=== PATIENT | female | born 1965 | race Caucasian/White ===

== ENCOUNTER 2016-11-29 22:19 | Emergency (ER) | payer OTHER ==
[~2016-11-29] VITALS: Ht 152.4 cm; Wt 90.7 kg
[~2016-11-29 22:19] MED LIST: ALBU0.0912 INH; AZIT250T3 PO; BECL0.089 INH; FERR-193 PO; FERR325E14 PO; FOLI1TAB19 PO; HYDR-4446 PO; LORA-476 PO; OMEP40EC14 PO; PARO20TA13 PO; QUET300T1 PO
[2016-11-29 22:52] VITALS: BP 130/80
--- NOTE | 2016-11-29 23:37 | NUR ---
TO ER BED 5
--- NOTE | 2016-11-29 23:41 | NUR ---
PATIENT PRESENTS TO ED WITH C/O LEFT SIDE PAIN . PT DENIES N/V/D; SKIN IS PINK/WARM/DRY; AAOX4 WITH EVEN AND STEADY GAIT; LUNGS CLEAR BL; HR EVEN AND REGULAR; PT DENIES ANY FEVER, CP, SOB, OR COUGH AT THIS TIME; PATIENT STATES PAIN OF 10/10 AT THIS TIME; VSS; PATIENT POSITIONED FOR COMFORT; HOB ELEVATED; BEDRAILS UP X2; BED DOWN. ER MD MADE AWARE OF PT STATUS.
--- NOTE | 2016-11-30 00:07 | NUR ---
EPatient being evaluated by physician at bedside.
[2016-11-30] MEDS ORDERED: fentaNYL 0.05 MG/ML VIAL IM ONE (00:15)
[2016-11-30 00:54] VITALS: BP 130/80
== END 2016-11-30 00:54 | disposition home or self-care (01) ==
LOC: MED 22:22
DX: S29.011A Strain of muscle and tendon of front wall of thorax, initial encounter (principal); S29.012A Strain of muscle and tendon of back wall of thorax, initial encounter; J45.909 Unspecified asthma, uncomplicated; J21.9 Acute bronchiolitis, unspecified; I10 Essential (primary) hypertension; Z88.8 Allergy status to other drugs, medicaments and biological substances; X58.XXXA Exposure to other specified factors, initial encounter; Y93.89 Activity, other specified; Y92.89 Other specified places as the place of occurrence of the external cause; Y99.8 Other external cause status
CPT/HCPCS: 96372; 99283; J3010

== ENCOUNTER 2017-01-13 09:48 | Inpatient (IN) | payer OTHER ==
[~2017-01-13] VITALS: Ht 152.4 cm; Wt 92.5 kg
[2017-01-13 09:53] VITALS: BP 145/86
--- NOTE | 2017-01-13 12:58 | NUR ---
Patient ambulated to bed 8. RN evaluating patient at bedside.
--- NOTE | 2017-01-13 12:58 | NUR ---
Rosanne lloyd in ED - 01/13/17 at 1555 by [email or web address] PATIENT IS CALLED FROM LOBBY NO ANSWER PATIENT IS LWBS.
--- NOTE | 2017-01-13 12:59 | NUR ---
51/F BIB FRIEND C/O SOB X3DAYS, DIZZINESS/LIGHTHEADED WHEN "GETTING UP" WITH FATIGUE. DENIES FEVER/N/V/D. HX CHRONIC ANEMIA, ASTHMA.PT STATED FEEL NAUSEA BUT DENIES V/D; SKIN IS PINK/WARM/DRY; AAOX4 WITH EVEN AND STEADY GAIT; LUNGS CONGESTED BL; PATIENT STATES PAIN OF 0/10 AT THIS TIME; VSS; PATIENT POSITIONED FOR COMFORT; HOB ELEVATED; BEDRAILS UP X2; BED DOWN. ER MD MADE AWARE OF PT STATUS.
[2017-01-13] MEDS ORDERED: ALBUTEROL SULFATE/IPRATROPIU 3 ML SOL IH ONE (13:05)
[2017-01-13 13:40] LABS: BASOPHILS # (AUTO) 0.1 K/uL (0.00-0.22); BASOPHILS % (AUTO) 0.8 % (0.0-2.0); EOSINOPHILS # (AUTO) 0.6 K/uL (0-0.4); EOSINOPHILS % (AUTO) 5.6 % (0.0-4.0); HEMATOCRIT 25.9 % (36-48); HEMOGLOBIN 7.9 g/dL (12.0-16.0); LYMPHOCYTES # (AUTO) 2.2 K/uL (2.5-16.5); LYMPHOCYTES % (AUTO) 20.9 % (20.5-51.1); MEAN CORPUSCULAR HEMOGLOBIN 24 pg (27-31); MEAN CORPUSCULAR HGB CONC 31 g/dL (33-37); MEAN CORPUSCULAR VOLUME 79 fL (80-94); MONOCYTES # (AUTO) 0.7 K/uL (0.8-1.0); MONOCYTES % (AUTO) 6.6 % (1.7-9.3); NEUTROPHILS # (AUTO) 6.8 K/uL (1.8-7.7); NEUTROPHILS % (AUTO) 66.1 % (42.2-75.2); PLATELET COUNT (AUTO) 359 K/uL (140-450); RED BLOOD CELL COUNT(AUTO) 3.27 MIL/uL (4.20-5.40); RED CELL DISTRIBUTION WIDTH 17.4 % (11.6-13.7); WHITE BLOOD COUNT (AUTO) 10.4 K/uL (4.8-10.8)
[2017-01-13 13:48] LABS: CALCIUM 8.3 mg/dL (8.5-10.1); CARBON DIOXIDE 27.4 mmol/L (21-32); CREATININE 0.7 mg/dL (0.6-1.3); POTASSIUM 4.4 mmol/L (3.5-5.1)
[2017-01-13 13:53] LABS: INR 1.1 (0.8-1.2); PARTIAL THROMBOPLASTIN TIME 25.2 secs (22-35.6); PROTHROMBIN TIME 10.4 secs (10.8-13.4)
[2017-01-13 13:54] LABS: ALBUMIN 3.5 g/dL (3.4-5.0); TOTAL BILIRUBIN 0.1 mg/dL (0.0-1.0); TOTAL PROTEIN, SERUM 6.8 g/dL (6.4-8.2)
--- NOTE | 2017-01-13 15:26 | NUR ---
GAVE BLOOD TRANSFUSION UNIT 1 RBC 400 ML RATE 100ML/HR L FOREARM.Patient appears to be resting comfortably in bed. Vital Signs within normal limits. Respirations even and unlabored. WILL CONTINUE TO MONITOR. NO S/S ALLERGIC REACTION FROM BL TRANSFUSION.
[2017-01-13] MEDS ORDERED: HYDROcodone/APAP 5/325 MG 1 TAB TAB PO ONE (15:35)
[2017-01-13] MEDS: NACL 0.9% 1,000 ML IV SCH (15:54)
[2017-01-13] MEDS ORDERED: ALBUTEROL 0.083% 2.5 MG/3 ML NEBU IH PRN (15:55)
[2017-01-13] MEDS ORDERED: ACETAMINOPHEN 325 MG TAB PO PRN (15:55)
[2017-01-13] MEDS ORDERED: MORPHINE SULFATE 2 MG/ML SYR IVP PRN (15:55)
[2017-01-13] MEDS ORDERED: ONDANSETRON 4 MG/2 ML VIAL IVP PRN (15:55)
[2017-01-13] MEDS ORDERED: HYDROcodone/APAP 5/325 MG 1 TAB TAB PO PRN ×2 (15:55)
--- NOTE | 2017-01-13 16:56 | NUR ---
FINISHED RBC 1 PACK 400ML. NO REACTION FROM BLOOD TRANSFUSION.
--- NOTE | 2017-01-13 17:00 | NUR ---
Patient will be admitted to care of DR LOTT. Admited to TELE. Will go to [facility]. Belongings list completed. Report to KECIA MCKINLEY.
[2017-01-13 17:15] VITALS: BP 97/64
--- NOTE | 2017-01-13 17:15 | NUR ---
RECEIVED PT ON THE FLOOR VIA GURNEY, PT IS A/OX4, AMBULATES WITH ASSIST, PT HAS IV ON THE LT AC, PATENT, INTACT, AND IV ON THE RT, FA, PATENT, INTACT, FLUSHING WELL, SKIN IS INTACT, PT IS ON O2 2L NC, NO S/S OF RESPIRATORY DISTRESS OR DISCOMFORT NOTED, SAFETY/FALL PRECAUTIONS ARE IN PLACE, ORIENTED PT TO THE ROOM, DISCUSSED PLAN OF CARE WITH PT, PT VERBALIZED UNDERSTANDING, CALL LIGHT IS WITHIN REACH, WILL CONTINUE TO MONITOR.
--- NOTE | 2017-01-13 18:44 | NUR ---
THE SECOND UNIT OF BLOOD WAS HUNG, PT TOLERATED WELL, NO S/S OF RESPIRATORY DISTRESS OR DISCOMFORT NOTED, CALL LIGHT WITHIN REACH, WILL CONTINUE TO MONITOR.
--- NOTE | 2017-01-13 19:15 | NUR ---
PT ENDORSED TO KECIA FLORES, FOR CONTINUITY OF CARE, PT STABLE AT THIS TIME.
--- NOTE | 2017-01-13 19:16 | NUR ---
RECEIVED REPORT FROM DAY RN FOR CONTINUITY OF CARE. PATIENT IS A&OX3, DISCUSSED PLAN OF CARE WITH PATIENT, VERBALIZED UNDERSTANDING. SHIFT ASSESSMENT DONE, VS TAKEN, STABLE. NO S/S OF RESPIRATORY DISTRESS NOTED ON 2L NC. PATIENT STATES PAIN, WILL MEDICATE PER MD ORDER. IV TO RT FA PATENT AND INFUSING BLOOD PRODUCT. IV TO LT AC FLUSHED AND PATENT. SAFETY PRECAUTIONS ENFORCED. CALL LIGHT WITHIN REACH. WILL CONTINUE TO MONITOR.
[2017-01-13 20:00] VITALS: BP 93/55
[2017-01-13] MEDS ORDERED: QUEtiapine FUMARATE 100 MG TAB PO SCH (21:00)
[2017-01-13] MEDS ORDERED: OMEPRAZOLE 40 MG PO SCH (21:00)
[2017-01-13] MEDS: PANTOPRAZOLE 40 MG TABEC PO SCH (21:03)
[2017-01-13] MEDS: FERROUS SULFATE 325 MG TABEC PO SCH (21:03)
[2017-01-13] MEDS: PARoxetine 20 MG TAB PO SCH (21:03)
--- NOTE | 2017-01-13 21:03 | NUR ---
DUE MEDICATIONS ADMINISTERED, TOLERATED WELL. WILL CONTINUE TO MONITOR.
[2017-01-13] MEDS: LORazepam 2 MG/ML VIAL IVP PRN (21:16)
--- NOTE | 2017-01-13 21:16 | NUR ---
PT C/O ANXIETY ATTACK, VS TAKEN, ELEVATED HR NOTED, ADMINISTERED MEDICATION PER MD ORDER. WILL CONTINUE TO MONITOR.
[2017-01-14] VITALS: BP 92/52
--- NOTE | 2017-01-14 00:18 | NUR ---
PATIENT VOMITED X1, CLEANED AND CHANGED PATIENT, MEDICATED WITH ZOFRAN. VS TAKEN. WILL CONTINUE TO MONITOR.
--- NOTE | 2017-01-14 02:05 | NUR ---
PT GOT OUT OF BED QUICKLY AND IV TO RT FA DISLODGED, CANNULA INTACT. ASSISTED TO RESTROOM, VOIDED. RETURNED TO BED. WILL CONTINUE TO MONITOR.
[2017-01-14] MEDS: NACL 0.9% 1,000 ML IV SCH ×3 (02:25→21:54)
[2017-01-14 04:00] VITALS: BP 109/72
--- NOTE | 2017-01-14 04:03 | NUR ---
PATIENT RESTING IN BED. IV FLUIDS MOVED TO LT IV. WILL CONTINUE TO MONITOR.
--- NOTE | 2017-01-14 06:00 | NUR ---
PATIENT RESTING IN BED. 98% O2 SAT ON 2L NC, HR 113. CALL LIGHT WITHIN REACH.
--- NOTE | 2017-01-14 07:20 | NUR ---
ENDORSED PATIENT TO DAY RN FOR CONTINUITY OF CARE, PATIENT IS IN STABLE CONDITION.
[2017-01-14 07:27] LABS: BASOPHILS % (AUTO) 0.3 % (0.0-2.0); EOSINOPHILS # (AUTO) 0.1 K/uL (0-0.4); HEMATOCRIT 25.2 % (36-48); LYMPHOCYTES # (AUTO) 1.4 K/uL (2.5-16.5); LYMPHOCYTES % (AUTO) 10.9 % (20.5-51.1); MEAN CORPUSCULAR HEMOGLOBIN 26 pg (27-31); MEAN CORPUSCULAR HGB CONC 32 g/dL (33-37); MEAN CORPUSCULAR VOLUME 83 fL (80-94); MONOCYTES # (AUTO) 0.7 K/uL (0.8-1.0); MONOCYTES % (AUTO) 5.5 % (1.7-9.3); NEUTROPHILS # (AUTO) 11.1 K/uL (1.8-7.7); NEUTROPHILS % (AUTO) 82.3 % (42.2-75.2); PLATELET COUNT (AUTO) 245 K/uL (140-450); RED BLOOD CELL COUNT(AUTO) 3.05 MIL/uL (4.20-5.40); RED CELL DISTRIBUTION WIDTH 16.6 % (11.6-13.7); WHITE BLOOD COUNT (AUTO) 13.3 K/uL (4.8-10.8)
[2017-01-14 07:37] LABS: ALBUMIN 2.7 g/dL (3.4-5.0); ANION GAP 11.1 (8-16); CALCIUM 7.5 mg/dL (8.5-10.1); CARBON DIOXIDE 24.6 mmol/L (21-32); CREATININE 0.5 mg/dL (0.6-1.3); POTASSIUM 4.7 mmol/L (3.5-5.1); TOTAL BILIRUBIN 0.1 mg/dL (0.0-1.0); TOTAL PROTEIN, SERUM 5.6 g/dL (6.4-8.2)
[2017-01-14 08:00] VITALS: BP 145/96
[2017-01-14] MEDS: PANTOPRAZOLE 40 MG TABEC PO SCH ×2 (08:45→20:58)
[2017-01-14] MEDS: FERROUS SULFATE 325 MG TABEC PO SCH (08:45)
[2017-01-14] MEDS: FOLIC ACID 1 MG TAB PO SCH (08:45)
[2017-01-14] MEDS: PARoxetine 20 MG TAB PO SCH ×2 (08:45→20:58)
[2017-01-14] MEDS ORDERED: NON-FORMULARY ITEM (Beclomethasone Dipropionate Mdi* (Qvar Hfa Mdi*) 80 MCG) INH SCH (09:00)
--- NOTE | 2017-01-14 09:09 | NUR ---
PATIENT HAS BEEN SCREENED AND CATEGORIZED MODERATE NUTRITION RISK. PATIENT WILL BE SEEN WITHIN 3-5 DAYS OF ADMISSION. 01/16/17-01/18/[address]
[2017-01-14 12:00] VITALS: BP 95/56
[2017-01-14] MEDS ORDERED: MIDAZOLAM 2 MG/2 ML VIAL ONE (13:56)
[2017-01-14] MEDS ORDERED: diphenhydrAMINE 50 MG/ML VIAL ONE (13:56)
[2017-01-14] MEDS: fentaNYL 0.05 MG/ML VIAL ONE ×3 (14:38→14:47)
[2017-01-14] MEDS ORDERED: BOWEL EVACUANT DRINK 4,000 ML PDS PO SCH (15:09)
[2017-01-14] MEDS ORDERED: MAGNESIUM CITRATE 300 ML BTL PO SCH (15:10)
[2017-01-14 16:00] VITALS: BP 142/63
[2017-01-14] MEDS: SENNA 8.6 MG TAB PO SCH ×2 (17:07→20:59)
[2017-01-14] MEDS: LACTULOSE 20 GM/30 ML UDC PO SCH ×2 (17:07→20:58)
[2017-01-14] MEDS: METOCLOPRAMIDE 10 MG/2 ML INJ VIAL IVP SCH (18:33)
--- NOTE | 2017-01-14 19:15 | NUR ---
PT ENDORSED TO KECIA GRANADOS. FOR CONTINUITY OF CARE. PT STABLE AT THIS TIME.
--- NOTE | 2017-01-14 19:20 | NUR ---
RECEIVED REPORT FROM DAY SHIFT RN. PT RESTING IN BED, A/O X 4, NO S/S OF ACUTE DISTRESS NOTED. IV INTACT AND PATENT. PT ON O2 2L NC, RESPIRATION EVEN AND UNLABORED, DENIES PAIN AT THIS TIME. CALL LIGHT WITHIN REACH, SAFETY MEASURE ENSURED, WILL CONTINUE TO MONITOR.
[2017-01-14 20:00] VITALS: BP 115/68
[2017-01-14] MEDS: FERRIC GLUCONATE 125 MG in NACL 0.9% 100 ML IV SCH (20:57)
[2017-01-14] MEDS: QUEtiapine FUMARATE 100 MG TAB PO SCH (20:59)
--- NOTE | 2017-01-14 22:30 | NUR ---
PT HAD A LOOSE BM . STILL DARK COLOR. ENCOURAGED TO FINISH THE GOLYTELY . WILL CONTINUE TO MONITOR.
--- NOTE | 2017-01-14 23:55 | NUR ---
ORAL PREP FINISHED. INSTRUCTED NPO AFTER MN. VERBALIZED UNDERSTANDING.
[2017-01-15] VITALS: BP 83/51
--- NOTE | 2017-01-15 01:35 | NUR ---
BP LOW 83/51. PAGED DR. LOTT, DR. GOLDEN Huggins POTATO PICKER. CALLED BACK WITH ORDER.
[2017-01-15] MEDS ORDERED: NACL 0.9% 1,000 ML IV ONE (01:40)
[2017-01-15] MEDS: METOCLOPRAMIDE 10 MG/2 ML INJ VIAL IVP SCH ×4 (01:41→18:10)
--- NOTE | 2017-01-15 02:30 | NUR ---
PT IS SLEEPING. IV BOLUS STILL INFUSING. WILL MONITOR BP .
[2017-01-15 04:00] VITALS: BP 81/54
[2017-01-15] MEDS: NACL 0.9% 1,000 ML IV SCH ×2 (04:58→08:03)
--- NOTE | 2017-01-15 05:02 | NUR ---
BP STILL LOW 81/54 AFTER THE NS [address] FRANKS TO MAKE HER AWARE.
--- NOTE | 2017-01-15 05:45 | NUR ---
DR. FRANKS CALLED BACK. MADE AWARE ABOUT THE BP STILL LOW FROM 81/54 -89/57, PT ASYMPTOMATIC. NO NEW ORDER . SHE SAID TO CONTINUE TO MONITOR PT.
--- NOTE | 2017-01-15 06:37 | NUR ---
LT AC#20 IV ACCESS INFILTRATED. DISCONTINUED. STARTED A NEW IV ACCESS ON THE RT HAND #22. CLEAR AND PATENT.
[2017-01-15 07:03] LABS: ANION GAP 10.6 (8-16); BASOPHILS # (AUTO) 0.1 K/uL (0.00-0.22); BASOPHILS % (AUTO) 1.1 % (0.0-2.0); CALCIUM 7.2 mg/dL (8.5-10.1); CARBON DIOXIDE 25.8 mmol/L (21-32); CREATININE 0.5 mg/dL (0.6-1.3); EOSINOPHILS # (AUTO) 0.2 K/uL (0-0.4); EOSINOPHILS % (AUTO) 2.3 % (0.0-4.0); LYMPHOCYTES # (AUTO) 1.6 K/uL (2.5-16.5); LYMPHOCYTES % (AUTO) 19.4 % (20.5-51.1); MEAN CORPUSCULAR HEMOGLOBIN 27 pg (27-31); MEAN CORPUSCULAR HGB CONC 32 g/dL (33-37); MEAN CORPUSCULAR VOLUME 82 fL (80-94); MONOCYTES # (AUTO) 0.6 K/uL (0.8-1.0); MONOCYTES % (AUTO) 7.5 % (1.7-9.3); NEUTROPHILS # (AUTO) 5.6 K/uL (1.8-7.7); NEUTROPHILS % (AUTO) 69.7 % (42.2-75.2); PLATELET COUNT (AUTO) 193 K/uL (140-450); POTASSIUM 3.4 mmol/L (3.5-5.1); RED CELL DISTRIBUTION WIDTH 16.3 % (11.6-13.7); WHITE BLOOD COUNT (AUTO) 8.1 K/uL (4.8-10.8)
[2017-01-15 07:10] LABS: HEMOGLOBIN 6.1 g/dL (12.0-16.0)
[2017-01-15 07:11] LABS: HEMATOCRIT 18.8 % (36-48)
--- NOTE | 2017-01-15 07:14 | NUR ---
ENDORSED PLAN OF CARE TO DAY SHIFT RN. PT IS STABLE, NO S/S OF ACUTE DISTRESS NOTED.
--- NOTE | 2017-01-15 07:15 | NUR ---
RECEIVED REPORT FROM KECIA GRANADOS, PT IS A/OX4, AMBULATES WITH ASSIST, PT HAS IV ON THE RT HAND, PATENT, INTACT, AND SKIN IS INTACT, PT IS ON O2 2L NC, NO S/S OF RESPIRATORY DISTRESS OR DISCOMFORT NOTED, SAFETY/FALL PRECAUTIONS ARE IN PLACE, ORIENTED PT TO THE ROOM, DISCUSSED PLAN OF CARE WITH PT, PT VERBALIZED UNDERSTANDING, CALL LIGHT IS WITHIN REACH, WILL CONTINUE TO MONITOR.
[2017-01-15 08:00] VITALS: BP 81/42
[2017-01-15] MEDS: FERRIC GLUCONATE 125 MG in NACL 0.9% 100 ML IV SCH ×2 (08:18→20:58)
[2017-01-15] MEDS: FOLIC ACID 1 MG TAB PO SCH (08:33)
[2017-01-15] MEDS: LACTULOSE 20 GM/30 ML UDC PO SCH ×2 (08:33→13:00)
[2017-01-15] MEDS: SENNA 8.6 MG TAB PO SCH ×2 (08:34→13:00)
[2017-01-15] MEDS: PARoxetine 20 MG TAB PO SCH ×2 (08:34→20:39)
[2017-01-15] MEDS: PANTOPRAZOLE 40 MG INJ VIAL IVP SCH ×2 (09:49→20:58)
[2017-01-15 12:00] VITALS: BP 85/51
--- NOTE | 2017-01-15 14:05 | NUR ---
PATIENT TAKEN TO HAVE COLONOSCOPY DONE.
[2017-01-15] MEDS ORDERED: fentaNYL 0.05 MG/ML VIAL ONE (14:16)
[2017-01-15] MEDS ORDERED: MIDAZOLAM 2 MG/2 ML VIAL ONE ×2 (14:16)
[2017-01-15] MEDS ORDERED: diphenhydrAMINE 50 MG/ML VIAL ONE (14:17)
[2017-01-15 16:00] VITALS: BP 96/54
[2017-01-15] MEDS ORDERED: POTASSIUM CHLORIDE 20% 40 MEQ/15 ML UDC PO SCH (16:00)
[2017-01-15] MEDS ORDERED: FUROSEMIDE 20 MG/2 ML VIAL IVP SCH (16:00)
[2017-01-15] MEDS: FERROUS SULFATE 325 MG TABEC PO SCH (16:56)
--- NOTE | 2017-01-15 19:04 | NUR ---
ENDORSED PT TO KECIA NAYLOR. FOR CONTINUITY OF CARE, PT STABLE AT THIS TIME.
[2017-01-15] MEDS: LORazepam 2 MG/ML VIAL IVP PRN (19:56)
[2017-01-15 20:00] VITALS: BP 103/51
--- NOTE | 2017-01-15 20:00 | NUR ---
RECEIVED REPORT AT BEDSIDE.PT IS AWAKE,ALERT AND ORIENTED.RESP.UNLABORED W/O2 AT 2L/NC.2ND UNIT OF PRBC IS II PROGRESS.TELE IS ON AND SHOWING SR/ARTIFACT.FAMILY AT BEDSIDE.CALL LIGHT IN REACH.NO C/O PAIN OR DISCOMFORT NOW.
[2017-01-15] MEDS: QUEtiapine FUMARATE 100 MG TAB PO SCH (20:39)
--- NOTE | 2017-01-15 20:40 | NUR ---
2ND UNIT OF PRBC FINISHED PT TOLERATED BLOOD WELL.VS STABLE.
[2017-01-16] VITALS: BP 80/49
--- NOTE | 2017-01-16 00:10 | NUR ---
PT IS SLEEPING W/O S/S OF ANY DISTRESS.BP STILL IS LOW.CHANGED SITE OF IV TO LT.HAND W/#22G IN 1ST ATTEMPT. Addendum: 01/16/17 at 0107 by Michael Maddox RN CHANGED IV SITE TO LT HAND.CORRECT IS RT HAND.
[2017-01-16] MEDS: METOCLOPRAMIDE 10 MG/2 ML INJ VIAL IVP SCH ×2 (00:24→05:42)
[2017-01-16 04:00] VITALS: BP 94/50
--- NOTE | 2017-01-16 04:10 | NUR ---
SLEEPING.HR IS SR.BP IS LOW.NO S/S OF ANY DISTRESS NOTED.
--- NOTE | 2017-01-16 06:29 | NUR ---
SLEPT WELL.REGLAN IVP GIVEN.NO S/S OF RESP.DISTRESS NOW.CALL LIGHT IN REACH.
[2017-01-16 07:02] LABS: BASOPHILS # (AUTO) 0.1 K/uL (0.00-0.22); BASOPHILS % (AUTO) 0.6 % (0.0-2.0); EOSINOPHILS # (AUTO) 0.3 K/uL (0-0.4); EOSINOPHILS % (AUTO) 2.8 % (0.0-4.0); HEMATOCRIT 25.9 % (36-48); HEMOGLOBIN 8.4 g/dL (12.0-16.0); LYMPHOCYTES # (AUTO) 2.1 K/uL (2.5-16.5); LYMPHOCYTES % (AUTO) 21.4 % (20.5-51.1); MEAN CORPUSCULAR HEMOGLOBIN 28 pg (27-31); MEAN CORPUSCULAR HGB CONC 33 g/dL (33-37); MEAN CORPUSCULAR VOLUME 85 fL (80-94); MONOCYTES # (AUTO) 0.8 K/uL (0.8-1.0); MONOCYTES % (AUTO) 7.9 % (1.7-9.3); NEUTROPHILS # (AUTO) 6.6 K/uL (1.8-7.7); NEUTROPHILS % (AUTO) 67.3 % (42.2-75.2); PLATELET COUNT (AUTO) 204 K/uL (140-450); RED BLOOD CELL COUNT(AUTO) 3.06 MIL/uL (4.20-5.40); WHITE BLOOD COUNT (AUTO) 9.9 K/uL (4.8-10.8)
[2017-01-16 07:11] LABS: ANION GAP 12.1 (8-16); CALCIUM 7.8 mg/dL (8.5-10.1); CARBON DIOXIDE 25.8 mmol/L (21-32); CREATININE 0.6 mg/dL (0.6-1.3); POTASSIUM 3.9 mmol/L (3.5-5.1)
--- NOTE | 2017-01-16 07:15 | NUR ---
RECEIVED PT REPORT AT BEDSIDE FROM NIGHT NURSE. PT AMB TO RESTROOM WITH STEADY GAIT. PT IS AAOX4 AND SHOWS NO S/S OF DISTRESS ON ROOM AIR. PT IS ON TELE MONITORING. PT ON IV ON THE R H PATENT AND INTACT. PT BED IS LOWERED WITH CALL LIGHT WITHIN REACH.
[2017-01-16 08:00] VITALS: BP 83/48
[2017-01-16] MEDS ORDERED: LACTULOSE 20 GM/30 ML UDC PO SCH (09:00)
--- NOTE | 2017-01-16 09:00 | NUR ---
ADMINISTERED SCHEDULED MEDICATIONS. PT TOLERATED WELL. PT STATED SHE WAS ANXIOUS. PT HAS PRN MED FOR ANXIETY. WILL ADMINISTER.
[2017-01-16] MEDS: PANTOPRAZOLE 40 MG INJ VIAL IVP SCH (09:11)
[2017-01-16] MEDS: FOLIC ACID 1 MG TAB PO SCH (09:11)
[2017-01-16] MEDS: FERRIC GLUCONATE 125 MG in NACL 0.9% 100 ML IV SCH (09:11)
[2017-01-16] MEDS: PARoxetine 20 MG TAB PO SCH (09:11)
[2017-01-16] MEDS: FERROUS SULFATE 325 MG TABEC PO SCH (09:11)
[2017-01-16] MEDS: LORazepam 2 MG/ML VIAL IVP PRN (10:10)
--- NOTE | 2017-01-16 10:10 | NUR ---
ADMINISTERED PRN MEDICATION FOR ANXIETY. PT SHOWS NO S/S OF DISTRESS. PT IS ON 2L NC O2.
--- NOTE | 2017-01-16 11:16 | NUR ---
PT HAS BEEN DISCHARGE. ALL DISCHARGE PAPERWORK SIGN. ALL QUESTIONS ANSWERED. ALL BELONGINGS IN PT POSSESSION. IV DISCONTINUED WITH CANNULA INTACT. WRISTBANDS AND TELE MONITOR REMOVED. OFFERED PT WHEELCHAIR, PT REFUSED. PT AMB OUT OF UNIT WITH STEADY GAIT WITH BOYFRIEND PRESENT AT SIDE. PT IN STABLE CONDITION.
== END 2017-01-16 11:16 | disposition home or self-care (01) | DRG 378 ==
LOC: MED 09:48 → MMU 15:58 → MTU 17:17
PROVIDERS: ADMIT Hospitalist; ATTEND Hospitalist
PROC: 30233N1 Transfusion of Nonautologous Red Blood Cells into Peripheral Vein, Percutaneous Approach (ICD-10-PCS; principal; 2017-01-13)
PROC: 0DB68ZX Excision of Stomach, Via Natural or Artificial Opening Endoscopic, Diagnostic (ICD-10-PCS; 2017-01-14)
PROC: 0DJD8ZZ Inspection of Lower Intestinal Tract, Via Natural or Artificial Opening Endoscopic (ICD-10-PCS; 2017-01-15)
DX: K25.4 Chronic or unspecified gastric ulcer with hemorrhage (principal); F33.9 Major depressive disorder, recurrent, unspecified; D50.0 Iron deficiency anemia secondary to blood loss (chronic); K29.60 Other gastritis without bleeding; K44.9 Diaphragmatic hernia without obstruction or gangrene; F20.9 Schizophrenia, unspecified; F41.9 Anxiety disorder, unspecified; J44.9 Chronic obstructive pulmonary disease, unspecified; N18.9 Chronic kidney disease, unspecified; F41.0 Panic disorder [episodic paroxysmal anxiety]; I12.9 Hypertensive chronic kidney disease with stage 1 through stage 4 chronic kidney disease, or unspecified chronic kidney disease; K21.9 Gastro-esophageal reflux disease without esophagitis; K57.30 Diverticulosis of large intestine without perforation or abscess without bleeding; Z88.6 Allergy status to analgesic agent; Z79.899 Other long term (current) drug therapy; Z87.442 Personal history of urinary calculi
CPT/HCPCS: 36415; 71010; 80048; 80053; 82272; 83540; 83880; 84484; 85025; 85610; 85730; 86677; 86886; 86900; 86901; 86920; 87081; 93005; 94640; 99291; C9113; J1200; J2060; J2250; J2270; J2405; J2765; J2916; J3010; J7030; J7613; J7620; P9016; Q0092

== ENCOUNTER 2017-05-10 12:41 | Emergency (ER) | payer OTHER ==
[~2017-05-10] VITALS: Ht 152.4 cm; Wt 78.6 kg
[~2017-05-10 12:41] MED LIST changes: +ACET-8386 PO; -AZIT250T3 PO; -FERR-193 PO; -HYDR-4446 PO
[2017-05-10 12:48] VITALS: BP 123/83
--- NOTE | 2017-05-10 13:10 | NUR ---
PT AMBULATED TO ER BED#3.
--- NOTE | 2017-05-10 13:14 | NUR ---
52/F PRESENT TO ER C/O DIZZINESS x 2 DAYS. PT DENIES N/V/D. PT STATES SHE HAS HX: ANEMIA AND ANXIETY AND TAKING MEDS: LORAZEPAM 0.1MG, WELLBUTRIN 300MG AND SEROQUEL 400MG. AAOx4, PERRLA, BREATHING EVEN AND UNLABORED. ERMD NOTIFIED OF PATIENT STATUS.
[2017-05-10 14:01] LABS: BASOPHILS # (AUTO) 0.1 K/uL (0.00-0.22); BASOPHILS % (AUTO) 0.9 % (0.0-2.0); EOSINOPHILS # (AUTO) 0.1 K/uL (0-0.4); EOSINOPHILS % (AUTO) 0.7 % (0.0-4.0); HEMATOCRIT 41.8 % (36-48); HEMOGLOBIN 13.2 g/dL (12.0-16.0); LYMPHOCYTES # (AUTO) 1.2 K/uL (2.5-16.5); LYMPHOCYTES % (AUTO) 10.4 % (20.5-51.1); MEAN CORPUSCULAR HEMOGLOBIN 24 pg (27-31); MEAN CORPUSCULAR HGB CONC 32 g/dL (33-37); MEAN CORPUSCULAR VOLUME 75 fL (80-94); MONOCYTES # (AUTO) 0.6 K/uL (0.8-1.0); NEUTROPHILS # (AUTO) 9.5 K/uL (1.8-7.7); PLATELET COUNT (AUTO) 319 K/uL (140-450); RED BLOOD CELL COUNT(AUTO) 5.58 MIL/uL (4.20-5.40); RED CELL DISTRIBUTION WIDTH 17.5 % (11.6-13.7); WHITE BLOOD COUNT (AUTO) 11.5 K/uL (4.8-10.8)
[2017-05-10 14:25] LABS: ANION GAP 15.2 (8-16); CARBON DIOXIDE 25.6 mmol/L (21-32); CREATININE 0.8 mg/dL (0.6-1.3); POTASSIUM 3.8 mmol/L (3.5-5.1)
[2017-05-10 14:30] LABS: PROTHROMBIN TIME 10.3 secs (10.8-13.4)
[2017-05-10 14:32] LABS: ALBUMIN 4.3 g/dL (3.4-5.0); TOTAL BILIRUBIN 0.4 mg/dL (0.0-1.0)
[2017-05-10 14:56] VITALS: BP 100/69
== END 2017-05-10 14:56 | disposition home or self-care (01) ==
LOC: MED 12:41
DX: B34.9 Viral infection, unspecified (principal); J45.909 Unspecified asthma, uncomplicated; K21.9 Gastro-esophageal reflux disease without esophagitis; F20.9 Schizophrenia, unspecified
CPT/HCPCS: 36415; 71010; 80053; 83880; 84484; 85025; 85610; 85730; 93005; 99285; Q0092

== ENCOUNTER 2021-07-16 12:34 | Inpatient (IN) | payer OTHER ==
[~2021-07-16] VITALS: Ht 152.4 cm; Wt 59.9 kg
[~2021-07-16 12:34] MED LIST changes: -OMEP40EC14 PO; +OMEP40EC23 PO
[2021-07-16 13:11] VITALS: BP 97/53
--- NOTE | 2021-07-16 14:56 | NUR ---
LABS AT BEDSIDE
[2021-07-16 15:10] LABS: BASOPHILS % (AUTO) 0.3 % (0.0-2.0); EOSINOPHILS # (AUTO) 0.1 K/uL (0-0.4); EOSINOPHILS % (AUTO) 1.5 % (0.0-4.0); HEMATOCRIT 21.7 % (36-48); HEMOGLOBIN 7.2 g/dL (12.0-16.0); LYMPHOCYTES # (AUTO) 1.9 K/uL (2.5-16.5); LYMPHOCYTES % (AUTO) 28.2 % (20.5-51.1); MEAN CORPUSCULAR HEMOGLOBIN 28 pg (27-31); MEAN CORPUSCULAR HGB CONC 33 g/dL (33-37); MEAN CORPUSCULAR VOLUME 84.2 fL (80-94); MONOCYTES # (AUTO) 0.5 K/uL (0.8-1.0); MONOCYTES % (AUTO) 7.1 % (1.7-9.3); NEUTROPHILS # (AUTO) 4.2 K/uL (1.8-7.7); NEUTROPHILS % (AUTO) 62.9 % (42.2-75.2); PLATELET COUNT (AUTO) 199 K/uL (140-450); RED BLOOD CELL COUNT(AUTO) 2.58 MIL/uL (4.20-5.40); RED CELL DISTRIBUTION WIDTH 13.9 % (11.6-13.7); WHITE BLOOD COUNT (AUTO) 6.6 K/uL (4.8-10.8)
[2021-07-16] MEDS ORDERED: NACL 0.9% 1,000 ML IV ONE (15:15)
[2021-07-16 15:18] LABS: ANION GAP 10.7 (8-16); CREATININE 0.6 mg/dL (0.6-1.3)
[2021-07-16 15:20] LABS: POTASSIUM 2.7 mmol/L (3.5-5.1)
--- NOTE | 2021-07-16 15:47 | NUR ---
XRAY AT BEDSIDE
--- NOTE | 2021-07-16 15:50 | NUR ---
56 Y/O FEMALEPATIENT PRESENTS TO ED WITH C/O GI BLEED. PT STATES WEDNESDAY SHE ATE SOMETHING THAT IRRITATED HER STOMACH, THE NEXT DAY SHE HAD DARK RED DIARRHEA AND EMESIS. SHE STATES HE FEELS WEAK, COLD, AND DIZZY. SKIN IS PALE/WARM/DRY; AAOX4 WITH EVEN AND STEADY GAIT; LUNGS CLEAR BL; HR EVEN AND REGULAR; PT DENIES ANY FEVER, CP, SOB, OR COUGH AT THIS TIME; PATIENT STATES PAIN OF 10/10 AT THIS TIME IN HER STOMACH; VSS; PATIENT POSITIONED FOR COMFORT; HOB ELEVATED; BEDRAILS UP X2; BED DOWN. ER MD MADE AWARE OF PT STATUS. HX: HIATAL HERNIA AND BLEEDING ULCER ALL TO IBUPROFEN MEDS: LORAZEPAM, WELBUTRIN, OMEPRAZOLE
--- NOTE | 2021-07-16 15:55 | NUR ---
XRAY AT BEDSIDE
[2021-07-16] MEDS ORDERED: MORPHINE SULFATE 4 MG/ML SYR IVP ONE (16:25)
[2021-07-16] MEDS ORDERED: PANTOPRAZOLE 40 MG INJ VIAL IVP ONE (16:40)
[2021-07-16] MEDS ORDERED: LORazepam 1 MG TAB PO PRN (17:15)
[2021-07-16] MEDS ORDERED: METOCLOPRAMIDE 10 MG/2 ML INJ VIAL IVP PRN (17:15)
[2021-07-16] MEDS ORDERED: ONDANSETRON 4 MG/2 ML VIAL IVP PRN (17:15)
[2021-07-16] MEDS ORDERED: ACETAMINOPHEN 325 MG TAB PO PRN (17:15)
[2021-07-16] MEDS ORDERED: OCTREOTIDE ACETATE 1.25 MG in NACL 0.9% 250 ML IV SCH (17:15)
[2021-07-16] MEDS: NACL 0.9% 1,000 ML IV SCH (17:15)
[2021-07-16] MEDS ORDERED: MORPHINE SULFATE 4 MG/ML SYR IVP PRN (17:15)
--- NOTE | 2021-07-16 17:45 | NUR ---
RECEIVE REPORT FROM OLLIE MCDONNELL FROM ER.
--- NOTE | 2021-07-16 18:05 | NUR ---
Note [email or web address] in EDM - 07/16/21 at 1816 by [email or web address] Pt report given to []. Transfer of care at this time.Patient will be admitted to care of DR MALDONADO. Admited to TELE. Will go to room 126B. Belongings list completed. Report to RAFAELA MCDONNELL.
--- NOTE | 2021-07-16 18:15 | NUR ---
PATIENT ARRIVE TO UNIT VIA GURNEY. PATIENT HAS BLOOD TRANSFUSION IN PROGRESS. PATIENT AWAKE AND ALERT. NO ACUTE DISTRESS NOTES. BP 106/60, HR 83, RR 18, TEMP 97.3, O2 99%. NO ABNORMAL HEART SOUNDS HEARD. LUNGS ARE CLEAR. BOWEL SOUNDS HEARD IN ALL FOUR QUADRANTS. SKIN IS DRY, CLEAN AND INTACT. PATIENT DENIES PAIN AT THIS TIME. EDUCATED PATIENT TO ROOM ENVIRONMENT. ANSWERED PATIENT QUESTIONS. ALL SAFETY MEASURES IN PLACE. WILL CONTINUE TO MONITOR.
--- NOTE | 2021-07-16 19:20 | NUR ---
RECEIVED REPORT FROM RAFAELA MCDONNELL FOR CONTINUITY OF CARE. PT SITTING UP AAOX4. NO APPARENT S/S OF ACUTE DISTRESS. BREATHING EVEN AND UNLABORED ON RA WITH O2 SAT OF 98%. NO C/O CP, SOB OR PAIN. F AC 20G INTACT/PATENT WITH PRBCS INFUSING. POC AND WHITE COMMUNICATION BOARD UPDATED. BED IN LOW/LOCKED POSITION. CALL LIGHT WITHIN REACH. PT ENCOURAGED TO CALL FOR ANY NEEDS/ASSISTANCE. WILL CONTINUE TO MONITOR.
[2021-07-16 20:00] VITALS: BP 98/52
--- NOTE | 2021-07-16 22:27 | NUR ---
DR. NEWTON CALLED WITH ORDERS TO HOLD 2ND UNIT PRBC, DC SANDOSTATIN, H&H IN MORNING, EGD/COLONOSCOPY 07/17, BOWEL PREP NOW AND IN AM , CLEAR LIQUID DIET, FLEET EMEMA IN AM. WILL INPUT ORDERS AND CARRY OUT.
[2021-07-16] MEDS ORDERED: MAGNESIUM CITRATE 300 ML BTL PO SCH (22:40)
[2021-07-16] MEDS ORDERED: bisacodyL 5 MG TABEC PO SCH ×2 (22:40)
[2021-07-16] MEDS ORDERED: PANTOPRAZOLE 40 MG INJ VIAL ONE (22:58)
[2021-07-16] MEDS: PANTOPRAZOLE 80 MG in NACL 0.9% 100 ML IVP SCH (23:10)
[2021-07-17] VITALS: BP 127/80
[2021-07-17 01:04] LABS: BASOPHILS % (AUTO) 0.2 % (0.0-2.0); EOSINOPHILS # (AUTO) 0.2 K/uL (0-0.4); EOSINOPHILS % (AUTO) 2.3 % (0.0-4.0); HEMOGLOBIN 9.2 g/dL (12.0-16.0); LYMPHOCYTES # (AUTO) 1.9 K/uL (2.5-16.5); LYMPHOCYTES % (AUTO) 26.6 % (20.5-51.1); MEAN CORPUSCULAR HEMOGLOBIN 30 pg (27-31); MEAN CORPUSCULAR HGB CONC 34 g/dL (33-37); MEAN CORPUSCULAR VOLUME 86.7 fL (80-94); MONOCYTES # (AUTO) 0.5 K/uL (0.8-1.0); NEUTROPHILS # (AUTO) 4.7 K/uL (1.8-7.7); NEUTROPHILS % (AUTO) 63.9 % (42.2-75.2); PLATELET COUNT (AUTO) 196 K/uL (140-450); RED BLOOD CELL COUNT(AUTO) 3.11 MIL/uL (4.20-5.40); RED CELL DISTRIBUTION WIDTH 15.3 % (11.6-13.7); WHITE BLOOD COUNT (AUTO) 7.3 K/uL (4.8-10.8)
[2021-07-17] MEDS: PANTOPRAZOLE 80 MG in NACL 0.9% 100 ML IVP SCH ×3 (03:15→22:23)
[2021-07-17 04:00] VITALS: BP 119/86
[2021-07-17] MEDS ORDERED: MAGNESIUM CITRATE 300 ML BTL PO SCH (04:00)
[2021-07-17] MEDS ORDERED: bisacodyL 5 MG TABEC PO SCH (04:00)
[2021-07-17] MEDS: HYDROcodone/APAP 5/325 MG 1 TAB TAB PO PRN ×3 (04:26→20:49)
[2021-07-17] MEDS: NACL 0.9% 1,000 ML IV SCH ×3 (06:20→20:53)
--- NOTE | 2021-07-17 07:07 | NUR ---
REPORT GIVEN TO BEV MCDONNELL FOR CONTINUITY OF CARE. NO APPARENT S/S OF ACUTE DISTRESS. BREATHING EVEN AND UNLABORED. BED IN LOW/LOCKED POSITION. CALL LIGHT WITHIN REACH. ALL NEEDS MET AT THIS TIME.
--- NOTE | 2021-07-17 07:27 | NUR ---
RECEIVED REPORT FROM PM SHIFT RN . PATIENT SLEEPING AT THIS TIME. NO OBSERVED ANY RESP. DISTRESS/SOB ON ROOM AIR. TODAY'S PLAN FOR COLONOSCOPY PER ENDORSEMENT WILL FOLLOW UP ACCORDINGLY. ALL SAFETY MEASURES IN PLACED . WILL CONTINUE TO MONITOR THE PATIENT.
[2021-07-17 07:59] LABS: BASOPHILS % (AUTO) 0.2 % (0.0-2.0); EOSINOPHILS # (AUTO) 0.1 K/uL (0-0.4); HEMATOCRIT 30.7 % (36-48); HEMOGLOBIN 10.4 g/dL (12.0-16.0); LYMPHOCYTES # (AUTO) 1.5 K/uL (2.5-16.5); MEAN CORPUSCULAR HEMOGLOBIN 29 pg (27-31); MEAN CORPUSCULAR HGB CONC 34 g/dL (33-37); MEAN CORPUSCULAR VOLUME 86.3 fL (80-94); MONOCYTES # (AUTO) 0.4 K/uL (0.8-1.0); MONOCYTES % (AUTO) 5.3 % (1.7-9.3); NEUTROPHILS # (AUTO) 5.7 K/uL (1.8-7.7); NEUTROPHILS % (AUTO) 74.5 % (42.2-75.2); PLATELET COUNT (AUTO) 233 K/uL (140-450); RED BLOOD CELL COUNT(AUTO) 3.55 MIL/uL (4.20-5.40); RED CELL DISTRIBUTION WIDTH 14.9 % (11.6-13.7); WHITE BLOOD COUNT (AUTO) 7.7 K/uL (4.8-10.8)
[2021-07-17 08:00] VITALS: BP 108/61
[2021-07-17] MEDS ORDERED: SODIUM PHOSPHATE 118 ML ENEM RC SCH (08:00)
[2021-07-17] MEDS: DOCUSATE SODIUM 100 MG GELCAP PO SCH (08:10)
--- NOTE | 2021-07-17 08:13 | NUR ---
SINCE PT IS FOR COLONOSCOPY TODAY . ADMINISTERED FLEET ENEMA SCHEDULED .ALSO ADMINISTERED SCHEDULED MEDICATION. PATIENT TOLERATED WELL . ALSO PATIENT C/O NAUSEA AND VOMITED TWICE ..( DARK GREEN IN COLOR AND SMALL AMOUNT.) GIVEN ANTI EMESIS MED. IV MD ORDERED.AFTER ENEMA . PATIENT HAD LIQUID STOOL IN MODERATE AMOUNT. OFFER BREAKFAST . PATIENT DRANK JUICE ONLY. PROVIDE BLANKET PATIENT NEEDS. ALL SAFETY MEASURES AROVIDED. WILL CONTINUE TO MONITOR THE PATIENT.
[2021-07-17 08:28] LABS: ANION GAP 13.2 (8-16); CARBON DIOXIDE 26.9 mmol/L (21-32); CHOL/HDL RATIO 3.1 (1-4.5); CREATININE 0.6 mg/dL (0.6-1.3); MAGNESIUM 2.7 mg/dL (1.8-2.4); POTASSIUM 3.1 mmol/L (3.5-5.1); TOTAL BILIRUBIN 0.3 mg/dL (0.0-1.0)
--- NOTE | 2021-07-17 08:36 | NUR ---
PATIENT HAS BEEN SCREENED AND CATEGORIZED LOW NUTRITION RISK. PATIENT WILL BE SEEN WITHIN 7 DAYS OF ADMISSION. 07/23/[address]
--- NOTE | 2021-07-17 09:37 | NUR ---
PT HAS HAD CLEAR LIQUID BM WITH FRESH WATER AT BEDSIDE. ALL SAFETY MEASURES IN PLACE, CALL LIGHT WITHIN REACH. WILL CONTINUE TO MONITOR.
--- NOTE | 2021-07-17 10:17 | NUR ---
PATIENT TRANSFERRED TO OR IN STABLE CONDITION VIA GURNEY. REMOVED ALL JEWELRY PRIOR TO SEND FOR PROCEDURE.REPORT GIVEN TO OR NURSE.
[2021-07-17] MEDS ORDERED: MIDAZOLAM 5 MG/5 ML VIAL ONE (10:39)
[2021-07-17] MEDS ORDERED: fentaNYL citrate 0.05 MG/ML VIAL ONE (10:39)
--- NOTE | 2021-07-17 11:31 | NUR ---
PT BROUGHT BACK IN STABLE CONDITION. POST OP VITAL SIGNS WILL BE COMPLETED
[2021-07-17 12:00] VITALS: BP 115/55
[2021-07-17 12:31] LABS: BASOPHILS % (AUTO) 0.2 % (0.0-2.0); EOSINOPHILS % (AUTO) 0.6 % (0.0-4.0); HEMOGLOBIN 9.6 g/dL (12.0-16.0); LYMPHOCYTES # (AUTO) 1.6 K/uL (2.5-16.5); LYMPHOCYTES % (AUTO) 19.9 % (20.5-51.1); MEAN CORPUSCULAR HEMOGLOBIN 30 pg (27-31); MEAN CORPUSCULAR HGB CONC 34 g/dL (33-37); MEAN CORPUSCULAR VOLUME 86.7 fL (80-94); MONOCYTES # (AUTO) 0.5 K/uL (0.8-1.0); MONOCYTES % (AUTO) 6.6 % (1.7-9.3); NEUTROPHILS # (AUTO) 5.8 K/uL (1.8-7.7); NEUTROPHILS % (AUTO) 72.7 % (42.2-75.2); PLATELET COUNT (AUTO) 230 K/uL (140-450); RED BLOOD CELL COUNT(AUTO) 3.23 MIL/uL (4.20-5.40); RED CELL DISTRIBUTION WIDTH 14.8 % (11.6-13.7)
[2021-07-17] MEDS ORDERED: MIDAZOLAM 2 MG/2 ML VIAL IVP ONE (12:40)
[2021-07-17] MEDS ORDERED: fentaNYL citrate 0.05 MG/ML VIAL IVP ONE (12:40)
--- NOTE | 2021-07-17 13:00 | NUR ---
POST OP VITAL SIGNS HAVE BEEN COMPLETED AND PT REMAINED STABLE THROUGHOUT ALL OF THEM. ALL SAFETY MEASURES IN PLACE, CALL LIGHT WITHIN REACH. WILL CONTINUE TO MONITOR.
--- NOTE | 2021-07-17 13:42 | NUR ---
JUDSON MEDICATION ADMINISTERED PER MD ORDER. PT TOLERATED ADMINISTRATION. ALL SAFETY MEASURES IN PLACE, CALL LIGHT WITHIN REACH. WILL CONTINUE TO MONITOR.
--- NOTE | 2021-07-17 15:32 | NUR ---
PT REPORTS MODERATE PAIN, MEDICATED PER MD ORDER. PT EDUCATION PROVIDED AND PT VERBALIZED UNDERSTANDING. ALL SAFETY MEASURES IN PLACE, CALL LIGHT WITHIN REACH. WILL CONTINUE TO MONITOR.
[2021-07-17 16:00] VITALS: BP 96/43
--- NOTE | 2021-07-17 17:10 | NUR ---
ROUNDED ON PT, PT IS ASLEEP IN BED ON ROOM AIR WITH CHEST RISING AND FALLING EVEN AND UNLABORED. ALL SAFETY MEASURES IN PLACE, CALL LIGHT WITHIN REACH. WILL CONTINUE TO MONITOR.
--- NOTE | 2021-07-17 17:54 | NUR ---
SPOKE WITH PTS SISTER, PER KYLE, . WITH PTS APPROVAL WAS ABLE TO ANSWER ALL OF SISTERS QUESTIONS. ALL SAFETY MEASURES IN PLACE, CALL LIGHT WITHIN REACH. WILL CONTINUE TO MONITOR.
--- NOTE | 2021-07-17 18:13 | NUR ---
MADE ROUND IN THE ROOM. PATIENT COMFORTABLY SLEEPING IN THE BED. BREATHING EVEN AND UNLABORED. STABLE. ALL SAFETY MEASURES IN PLACED. CALL LIGHT WITHIN REACH. CONTUE MONITORING THE PATIENT.
[2021-07-17 18:18] LABS: BASOPHILS % (AUTO) 0.5 % (0.0-2.0); EOSINOPHILS # (AUTO) 0.1 K/uL (0-0.4); EOSINOPHILS % (AUTO) 1.7 % (0.0-4.0); HEMATOCRIT 29.2 % (36-48); HEMOGLOBIN 9.9 g/dL (12.0-16.0); LYMPHOCYTES # (AUTO) 1.7 K/uL (2.5-16.5); LYMPHOCYTES % (AUTO) 21.6 % (20.5-51.1); MEAN CORPUSCULAR HEMOGLOBIN 30 pg (27-31); MEAN CORPUSCULAR HGB CONC 34 g/dL (33-37); MEAN CORPUSCULAR VOLUME 87.6 fL (80-94); MONOCYTES # (AUTO) 0.6 K/uL (0.8-1.0); MONOCYTES % (AUTO) 6.9 % (1.7-9.3); NEUTROPHILS # (AUTO) 5.5 K/uL (1.8-7.7); NEUTROPHILS % (AUTO) 69.3 % (42.2-75.2); PLATELET COUNT (AUTO) 230 K/uL (140-450); RED BLOOD CELL COUNT(AUTO) 3.33 MIL/uL (4.20-5.40); RED CELL DISTRIBUTION WIDTH 14.9 % (11.6-13.7)
--- NOTE | 2021-07-17 19:09 | NUR ---
PT HAS BEEN ENDORSED TO STRATEGIC PARTNERSHIP REPRESENTATIVE NURSE IN STABLE CONDITION.
--- NOTE | 2021-07-17 19:30 | NUR ---
RECEIVED BEDSIDE REPORT FROM DAY SHIFT NURSE FOR CONTINUITY OF CARE. PATIENT IS AWAKE, ALERT, AND COOPERATIVE. RESPIRATION EVEN UNLABORED ON ROOM AIR. NO DISTRESS NOTED. SKIN IS WARM AND DRY. IV PATENT AND INTACT. PLAN OF CARE DISCUSSED. ALL SAFETY MEASURES IN PLACE. BED IS AT LOW POSITION. CALL LIGHT WITHIN REACH. WILL CONTINUE TO MONITOR.
[2021-07-17 20:00] VITALS: BP 121/50
--- NOTE | 2021-07-17 20:45 | NUR ---
ALL SCHEDULED MEDS WERE GIVEN PER ORDER. WILL CONTINUE TO MONITOR
[2021-07-17] MEDS: PARoxetine 20 MG TAB PO SCH (20:50)
[2021-07-17] MEDS ORDERED: QUEtiapine FUMARATE 100 MG TAB PO SCH (21:00)
[2021-07-17] MEDS ORDERED: LORazepam 1 MG TAB PO SCH (21:00)
--- NOTE | 2021-07-17 22:32 | NUR ---
MADE ROUND, PATIENT SLEEPING, RESPIRATION EVEN UNLABORED ON ROOM AIR. NO DISTRESS NOTED. WILL CONTINUE TO MONITOR
[2021-07-18] VITALS: BP 104/50
--- NOTE | 2021-07-18 02:05 | NUR ---
MADE ROUNDs, PATIENT SLEEPING, RESPIRATION EVEN UNLABORED ON ROOM AIR. NO DISTRESS NOTED. WILL CONTINUE TO MONITOR
[2021-07-18 04:00] VITALS: BP 101/58
--- NOTE | 2021-07-18 04:00 | NUR ---
VITALS WERE TAKEN.
[2021-07-18 07:12] LABS: ALBUMIN 2.4 g/dL (3.4-5.0); ANION GAP 9.1 (8-16); CREATININE 0.7 mg/dL (0.6-1.3); MAGNESIUM 2.3 mg/dL (1.8-2.4); POTASSIUM 3.1 mmol/L (3.5-5.1); TOTAL BILIRUBIN 0.2 mg/dL (0.0-1.0)
[2021-07-18 07:13] LABS: BASOPHILS % (AUTO) 0.3 % (0.0-2.0); EOSINOPHILS # (AUTO) 0.1 K/uL (0-0.4); EOSINOPHILS % (AUTO) 2.6 % (0.0-4.0); HEMATOCRIT 25.6 % (36-48); HEMOGLOBIN 8.7 g/dL (12.0-16.0); LYMPHOCYTES # (AUTO) 1.9 K/uL (2.5-16.5); LYMPHOCYTES % (AUTO) 32.6 % (20.5-51.1); MEAN CORPUSCULAR HEMOGLOBIN 30 pg (27-31); MEAN CORPUSCULAR HGB CONC 34 g/dL (33-37); MONOCYTES # (AUTO) 0.4 K/uL (0.8-1.0); MONOCYTES % (AUTO) 7.8 % (1.7-9.3); NEUTROPHILS # (AUTO) 3.2 K/uL (1.8-7.7); NEUTROPHILS % (AUTO) 56.7 % (42.2-75.2); PLATELET COUNT (AUTO) 228 K/uL (140-450); RED BLOOD CELL COUNT(AUTO) 2.94 MIL/uL (4.20-5.40); RED CELL DISTRIBUTION WIDTH 14.9 % (11.6-13.7); WHITE BLOOD COUNT (AUTO) 5.7 K/uL (4.8-10.8)
--- NOTE | 2021-07-18 07:22 | NUR ---
ENDORSED PATIENT TO DAY SHIFT NURSE FOR CONTINUITY OF CARE
--- NOTE | 2021-07-18 07:24 | NUR ---
RECEIVED BEDSIDE REPORT FROM WASTE MACHINE TENDER NURSE FOR CONTINUITY OF CARE. PATIENT IS AWAKE, ALERT, AND COOPERATIVE. RESPIRATION EVEN UNLABORED ON ROOM AIR. NO DISTRESS NOTED. SKIN IS WARM AND DRY. IV PATENT AND INTACT. PLAN OF CARE DISCUSSED. ALL SAFETY MEASURES IN PLACE. BED IS AT LOW POSITION. CALL LIGHT WITHIN REACH. WILL CONTINUE TO MONITOR.
[2021-07-18 08:00] VITALS: BP 96/42
[2021-07-18] MEDS ORDERED: FOLIC ACID 1 MG TAB PO SCH (09:00)
[2021-07-18] MEDS: HYDROcodone/APAP 5/325 MG 1 TAB TAB PO PRN ×2 (09:07→13:22)
[2021-07-18] MEDS: DOCUSATE SODIUM 100 MG GELCAP PO SCH (09:08)
[2021-07-18] MEDS: PARoxetine 20 MG TAB PO SCH (09:08)
[2021-07-18] MEDS: PANTOPRAZOLE 80 MG in NACL 0.9% 100 ML IVP SCH (09:08)
--- NOTE | 2021-07-18 09:09 | NUR ---
ALL SCHEDULED MEDS GIVEN. PT COMPLAINED OF 6/10 ABD PAIN. ADMINISTERED PRN PAIN MEDS PER MD ORDERED.
--- NOTE | 2021-07-18 11:50 | NUR ---
CHECKED ON PATIENT. PATIENT IS STABLE. NO DISTRESS NOTED. WILL CONTINUE TO MONITOR.
[2021-07-18 12:00] VITALS: BP 104/80
[2021-07-18] MEDS ORDERED: POTASSIUM CHLORIDE 10 MEQ TABER PO PRN (12:20)
[2021-07-18] MEDS: NACL 0.9% 1,000 ML IV SCH ×2 (12:33→12:34)
[2021-07-18] MEDS ORDERED: SUCR1TAB7 PO (13:07)
[2021-07-18] MEDS ORDERED: OMEP40EC23 PO (13:07)
--- NOTE | 2021-07-18 13:22 | NUR ---
PT C/C OF ABDOMEN PAIN 01/23. ADMINISTERED PRN PAIN MEDS PER MD ORDERED.
[2021-07-18 15:13] VITALS: BP 104/80
--- NOTE | 2021-07-18 16:00 | NUR ---
ENDORSED DISCHARGE INSTRUCTIONS TO PATIENT. PATIENT VERBALIZED UNDERSTANDING AND SIGNED DISCHARGE FORMS.
--- NOTE | 2021-07-18 16:14 | NUR ---
PATIENT DISCHARGED OFF THE UNIT. IV CATH AND ID BAND REMOVED. ESCORTED TO THE FRONT LOBBY AND PICKED UP BY FAMILY. PT WAS STABLE PRIOR TO DISCHARGE.
== END 2021-07-18 16:15 | disposition home or self-care (01) | DRG 369 ==
LOC: MED 12:34 → MTU 17:19 → MMU 17:29
PROVIDERS: ADMIT Hospitalist; ATTEND Hospitalist
PROC: 30233N1 Transfusion of Nonautologous Red Blood Cells into Peripheral Vein, Percutaneous Approach (ICD-10-PCS; 2021-07-16)
PROC: 0DJ08ZZ Inspection of Upper Intestinal Tract, Via Natural or Artificial Opening Endoscopic (ICD-10-PCS; principal; 2021-07-17 10:30)
PROC: 0DJD8ZZ Inspection of Lower Intestinal Tract, Via Natural or Artificial Opening Endoscopic (ICD-10-PCS; 2021-07-17 10:30)
DX: I85.01 Esophageal varices with bleeding (principal); D62 Acute posthemorrhagic anemia; K25.4 Chronic or unspecified gastric ulcer with hemorrhage; Z20.822 Contact with and (suspected) exposure to COVID-19; K44.9 Diaphragmatic hernia without obstruction or gangrene; E87.6 Hypokalemia; J45.909 Unspecified asthma, uncomplicated; F10.20 Alcohol dependence, uncomplicated; Y90.9 Presence of alcohol in blood, level not specified; Z88.1 Allergy status to other antibiotic agents; Z79.899 Other long term (current) drug therapy
CPT/HCPCS: 36415; 36430; 71045; 80048; 80053; 83036; 83735; 85025; 85610; 85730; 86677; 86886; 86900; 86901; 86920; 87081; 93005; 96361; 96374; 96375; 99285; C9113; J2250; J2270; J2354; J2765; J3010; J7030; P9016